=== PATIENT | male | born 2000 | race Caucasian/White ===

== ENCOUNTER 2022-07-22 12:10 | Emergency (ER) | payer BC, SELFPAY ==
[2022-07-22 12:10] VITALS: BP 140/99; PULSE 100; RESP 18; TEMP 35.8; O2SAT 100; BMI 29.9
--- NOTE | 2022-07-22 13:00 | EX.ED.UPPERE ---
HPI History of Present Illness Chief Complaint: Laceration Detail of Chief Complaint: Laceration right thumb Informant: patient Narrative Narrative: Patient presents the emergency department after sustaining a laceration to the right thumb that occurred today. Patient states he accidentally slammed it in the camper door. Patient is right-hand dominant. Patient unsure of his last tetanus shot. PFSH PFSH Home Medications cephalexin 500 mg capsule 500 mg PO Q6 #40 CAPSULES 07/22/22 [Rx Last Taken Unknown] hydrocodone-acetaminophen 5-325mg 5mg-325mg 1 tab PO Q4H PRN PRN Pain 2 days #15 TABLETS 07/22/22 [Rx Last Taken Unknown] Allergy/AdvReac Type Severity Reaction Status Date / Time No Known Allergies Allergy Verified 07/22/22 12:12 Social History Smoking Status: Current every day smoker tobacco type: cigarettes ROS ROS ED Review of Systems ROS Unobtainable: other Constitutional Constitutional ED: Reports lethargy; Denies chills, fever(s), sweats or weight loss Eyes Eyes: Denies blurry vision, change in vision or diplopia ENT ENT ED: Denies rhinorrhea or sore throat Cardiovascular Cardiovascular: Denies chest pain, orthopnea or racing heartbeat Respiratory/Chest Respiratory/Chest: Denies cough, dyspnea, dyspnea on exertion, orthopnea or sputum Gastrointestinal Gastrointestinal: Denies abdominal pain, diarrhea, nausea or vomiting Genitourinary Genitourinary ED: Denies dysuria, hematuria or urinary frequency Musculoskeletal Musculoskeletal: Reports other Details: Right thumb injury/right thumb laceration ; Denies arthralgias, back pain, myalgias or neck pain Integumentary Denies abscess, Abrasions or rash Neurologic Neurologic: Denies headache(s) or weakness Psychiatric Psychiatric: Denies anxiety, depression or suicidal thoughts Endocrine Endocrinology: Denies polydipsia, polyphagia or polyuria Hematologic/Lymphatic Hematologic/Lymphatic: Denies easy bleeding, easy bruising or lymphadenopathy Allergic/Immunologic Allergic/Immunologic ED: Denies mouth swelling, tongue swelling or urticaria EXAM Physical Exam Const Vital Signs: 07/22/22 12:10 Temperature 96.4 F L Temperature Source Temporal Pulse Rate 100 Respiratory Rate 18 Blood Pressure 140/99 H Blood Pressure Mean 112 Pulse Ox 100 Oxygen Delivery Method Room Air Positive well nourished and well developed General Appearance ED: well developed and NAD HEENT Reports TM's clear and moist mucous membranes normocephalic and atraumatic; Negative for trauma or tenderness Tympanic Membrane ED: Yes TM's clear Eyes PERRL and EOMs intact bilaterally General Eye ED: Negative for pale conjunctiva or scleral icterus Neck no lymphadenopathy, supple and no JVD General: Negative for tenderness Chest Wall inspection of chest normal and palpation of chest normal Chest: Negative for tenderness Resp normal respiratory effort and clear to auscultation bilaterally Effort and Inspection: Negative for respiratory distress or pain with movement Auscultation: Negative for rhonchi, wheezes or diminished lung sounds Cardio regular rate, regular rhythm, S1 normal heart sound, S2 normal heart sound and no murmurs Peripheral Pulses: pulses 2+ throughout GI normal to inspection, nondistended, normoactive bowel sounds, soft to palpation, non-tender, non-distended and no masses Back/Spine no CVA tenderness and no thoracic nor lumbar tenderness Extremity Extremity Narrative: Patient has a 2.5 cm laceration over the lateral aspect of the right thumb proximal phalanx. Mild bony tenderness on exam. Neurovascular intact distally. No involvement of the nailbed noted. General Extremety ED: Negative for edema General Extremity: Negative for edema Neuro oriented x3, CN's II-XII intact bilaterally, no sensory deficits noted and gait normal Sensorium / Orientation: awake, alert, oriented to person, oriented to place and oriented to time Motor Exam: strength 5/5 throughout and strength abnormal Psych mental status grossly normal Skin no rashes or lesions noted and no wounds MDM MDM MDM Narrative Medical decision making narrative: Patient technically has open fracture of the thumb. Recommended digital block and suture repair with washout. Patient in agreement. Please see procedure note. Patient was given Keflex 500 mg p.o. Patient was placed in aluminum splint. I will discussed with orthopedics and short close follow-up for patient. He will be treated with [place] and Keflex. Patient received tetanus booster. Radiography Diagnostic Testing: Three-view x-rays of the right thumb obtained interpreted by myself as comminuted fracture of the proximal phalanx of the thumb. Radiology in agreement. Procedures Lacerations Right thumb laceration: Length: 0.98 in Depth: Sub Q Shape: Linear Prep: Sterile Conditions and Shure-Clens Laceration repair: Digital block, Irrigated and Skin sutures Irrigated (ml): 100 Number of Sutures/[place]: 3 Suture Information: Ethilon, Simple and 5-0 Discharge Plan Triage Chief Complaint: Laceration ED Provider: Lui Butler Dx/Rx/DC Orders Clinical Impression: Fracture of thumb, right open, Finger laceration Instructions: ED Laceration, Hand: All Closures, ED Fracture, Thumb Prescriptions: New hydrocodone-acetaminophen [hydrocodone-acetaminophen] 1 TABLET tablet 1 tab PO Q4H PRN PRN (Reason: Pain) 2 Days Qty: 15 0RF cephalexin [cephalexin] 500 MG capsule 500 mg PO Q6 Qty: 40 0RF Primary Care Provider: Care Physician,No Primary Referrals: Zachery Cazares MD [Non-Staff] - 10 Day for suture removal Pito Cazares MD [Med Staff - Active Staff] - 5-7 Days NOT,DEFINED [Non-Staff] - Disposition Disposition: Home, Self Care
[2022-07-22] MEDS: Lidocaine 1% (20 ml mdv) 20 ML Vial 4 ML INFILT (13:09)
[2022-07-22] MEDS: Diphth,Pertuss(Acell),Tet Vac 0.5 ML Vial IM (13:09)
--- NOTE | 2022-07-22 13:09 | RAD_ITS ---
STUDY: X-RAY - RIGHT HAND, ATTENTION RIGHT THUMB. REASON FOR EXAM: Male, 21 years old. Injury right thumb TECHNIQUE: 3 view(s) of the finger were obtained. COMPARISON: None. FINDINGS: Normal metacarpal head. Normal metacarpophalangeal joint. Comminuted nondisplaced fracture through the midportion of the proximal phalanx of the right thumb. Normal distal phalanx. Normal distal interphalangeal joint. Soft tissue swelling. RAD/Finger(s) Min 2 Views IMPRESSION: Comminuted nondisplaced fracture through the midportion of the proximal phalanx of the right thumb with overlying soft tissue swelling. Electronically Signed: Joel Schofield MD at 13:43 EDT ,
[2022-07-22] MEDS: Cephalexin 250 MG Capsule 500 MG PO (14:12)
[2022-07-22 14:30] VITALS: RESP 18
== END 2022-07-22 14:33 | disposition home or self-care (01) ==
PROVIDERS: Emergency Provider Emergency Medicine; Visit Provider Emergency Medicine
DX: S62.514B Nondisplaced fracture of proximal phalanx of right thumb, initial encounter for open fracture (principal); W23.0XXA Caught, crushed, jammed, or pinched between moving objects, initial encounter; F17.210 Nicotine dependence, cigarettes, uncomplicated; Z23 Encounter for immunization
CPT/HCPCS: 12001; 73140; 90471; 90715; 93005; 99284